=== PATIENT | female | born 1990 | race Caucasian/White ===

== ENCOUNTER 2023-11-05 11:40 | Emergency (ER) | payer BC, SELFPAY ==
[2023-11-05 11:42] VITALS: BP 143/75; BMI 35.5
--- NOTE | 2023-11-05 13:09 | ED.GENMED ---
History of Present Illness
<Spike Acosta PA-C - Last Filed: 11/05/23 15:37>
General
Chief Complaint: Breathing Problem
Time Seen by Provider: 11/05/23 12:57
Travel History
Have you had any contact with someone who has COVID-19?: No
Do you have any symptoms of coronavirus? Fever > 100 degrees, chills, cough, shortness of breath, sore throat, loss of taste or smell, muscle aches, or headache?: No
History of Present Illness
History of Present Illness:
Patient is a 32-year-old female with past medical history of POTS not currently on medication here today for evaluation of approximately 3 to 4 days of a cough associated with intermittent production of mucus, dyspnea that is worsened with exertion,
and mild chest congestion. No noted fevers. No sore throat. No chest pain. Patient denies history of asthma or COPD. No tobacco use. No recent surgeries or immobilizations. No active cancer. No personal history of DVT/PE. No unilateral
lower extremity pain or swelling. No hemoptysis. No estrogen use. No sick contacts. Patient does report she was checking her oxygen levels at home with a pulse oximeter and at times have noted it to be as low as 92-93%.
Review of Systems
<Spike Acosta PA-C - Last Filed: 11/05/23 15:37>
Review of Systems
All Other Systems: ROS reviewed and negative except as documented in HPI and ROS
Phy Exam
<Spike Acosta PA-C - Last Filed: 11/05/23 15:37>
Physical Exam
Physical Exam:
GENERAL: Alert , in no apparent distress
EYE: pupils equal and reactive
NECK: Supple, no significant adenopathy.
ENT: o/p clr, mmm.
CARDIAC: Regular rate and rhythm .
LUNGS: Clear breath sounds bilaterally, no acute respiratory distress, no wheezes/rales/rhonchi
ABDOMEN: Soft, without focal tenderness, no r/g, no cvat
NEUROLOGICAL: Alert and oriented, no focal neuro deficits
SKIN: Warm and dry, skin intact.
MUSCULOSKELETAL: No edema, well perfused.
PSYCH: Normal and appropriate interaction.
Course
<Spike Acosta PA-C - Last Filed: 11/05/23 15:37>
Orders/Labs/Results
Orders:
Orders
11/05/23 13:12
CR Chest - 2 Views Urgent
Comment:
Reason For Exam: sob
11/05/23 14:24
Basic Metabolic Panel Urgent
Complete Blood Count/With Diff Urgent
D-Dimer Urgent
11/05/23 14:53
Electrocardiogram (*1) Urgent
Reason for Study: Shortness of Breath
EKG- Treatment ONCE
11/05/23 14:24
11/05/23 14:24
Vital Signs
Initial and Last Documented VS:
Initial Vital Signs
Temp Pulse Resp BP Pulse Ox
98.2 F 98 16 143/75 96
11/05/23 11:42 11/05/23 11:42 11/05/23 11:42 11/05/23 11:42 11/05/23 11:42
Last Documented Vital Signs
Temp Pulse Resp BP Pulse Ox
97.5 F 76 20 131/78 99
11/05/23 15:33 11/05/23 15:33 11/05/23 15:33 11/05/23 15:33 11/05/23 15:33
<Aristeo Perera MD - Last Filed: 11/05/23 14:59>
Orders/Labs/Results
Orders:
Orders
11/05/23 13:12
CR Chest - 2 Views Urgent
Comment:
Reason For Exam: sob
11/05/23 14:24
Basic Metabolic Panel Urgent
Complete Blood Count/With Diff Urgent
D-Dimer Urgent
11/05/23 14:53
Electrocardiogram (*1) Urgent
Reason for Study: Shortness of Breath
EKG- Treatment ONCE
11/05/23 14:24
11/05/23 14:24
Vital Signs
Initial and Last Documented VS:
Initial Vital Signs
Temp Pulse Resp BP Pulse Ox
98.2 F 98 16 143/75 96
11/05/23 11:42 11/05/23 11:42 11/05/23 11:42 11/05/23 11:42 11/05/23 11:42
Last Documented Vital Signs
Temp Pulse Resp BP Pulse Ox
97.5 F 76 20 131/78 99
11/05/23 15:33 11/05/23 15:33 11/05/23 15:33 11/05/23 15:33 11/05/23 15:33
<Spike cAosta PA-C - Last Filed: 11/05/23 15:37>
MDM/Problems Addressed
Differential Diagnosis Includes:
Patient is a 32-year-old female with past medical history of POTS not currently on medication here today for evaluation of approximately 3 to 4 days of a cough associated with intermittent production of mucus, dyspnea that is worsened with exertion,
and mild chest congestion. Overall, patient appears very well. She has a benign and reassuring examination. I monitored the patient's oxygen levels on my evaluation and it ranged primarily between 95 to 98%. On 1 occasion, she dropped as low as
93%. This was short-lived and immediately improved. At this time, we will begin with a chest x-ray. Will continually monitor the patient's oxygen levels.
11/05/2023 15:15: Oxygen levels monitored and patient remained on average between 95 to 96%. Additional workup was added including screening labs which included D-dimer. Labs reveal no evidence of anemia. D-dimer negative. Chest x-ray negative.
EKG nonischemic. At this time, symptoms/findings are most consistent with a viral respiratory tract infection, possibly bronchitis. Case discussed with ED attending, Dr. Perera, who evaluated patient at bedside. Will initiate therapy with a course
of methylprednisolone and albuterol inhaler. Recommend supportive care and close follow-up. Patient voices understanding of the above plan. She appears well and stable for discharge. All questions answered
<Spike Acosta PA-C - Last Filed: 11/05/23 15:37>
*Critical Care Note
Total Time (30-74mins, 75-104mins- exclusive of procedures): Not Applicable
ED Attending Note
<Spike Acosta PA-C - Last Filed: 11/05/23 15:37>
-
Portions of this chart may have been created with voice recognition software.� Occasional wrong word or��sound alike� substitutions may have occurred due to the inherent limitations of voice recognition software.
<Aristeo Perera MD - Last Filed: 11/05/23 14:59>
ED Attending Note
Patient seen and examined by attending physician: Yes
ED Attending Note:
I have seen and evaluated the patient with a [id number] encounter. I have spoken to the advance practicer provider and involved in the medical history, the physical exam, medical decision making.
Evaluation and management service: agree unless noted differently below.
Results interpretation: agree unless noted differently below.
Focused HPI: 32-year-old female presents for evaluation of shortness of breath. Patient says that she has had a lingering cough for the past 2 to 3 weeks. She says that over the past 4 to 5 days she started to develop some shortness of breath.
She says that she has been checking her pulse ox and she saw a few low readings at home which prompted her to come to the emergency room. She has not had any chest pain. She denies any edema in her legs. She has not had any dizziness or
lightheadedness. She says she did have a miscarriage about 6 weeks ago and had some bleeding associated with that but otherwise no recent heavy periods and no GI bleeding.
Physical exam: Awake and alert not in distress. Vital signs here are all normal including a pulse ox of 96 to 98% on room air. No tachypnea. She has no cardiac rubs gallops or murmurs. Her lungs are completely clear to auscultation bilaterally.
Occasional cough. No edema in her legs. Good pulses in all extremities.
Medical Decision Makin-year-old female presents for evaluation of mild shortness of breath in the setting of recent lingering cough. Vital signs are normal here. Sent for chest x-ray reviewed by me shows no acute pathology. IV placed and
labs sent off including a CBC which showed no anemia, BMP which was unremarkable. She had a negative D-dimer. Suspect she may have mild bronchitis. Will trial short course of steroids and albuterol and have patient follow-up with her primary care
physician. She feels comfortable with this plan. Spoke about return precautions all questions answered.
Discharge Plan
Departure
Patient Disposition: Home (Routine Discharge)
Date of Disposition: 11/05/23
Time of Disposition: 15:16
Patient with high blood pressure during this ER visit?: Yes
Condition: Good
Covid-19: Not Applicable
Discharge Problem:
Dyspnea, Acute bronchitis
Instructions: Acute Bronchitis, Adult (DC), Shortness of Breath (Dyspnea) (DC)
Prescriptions:
New
methylprednisolone [Medrol (Mauri)] 4 mg tablets,dose pack
See Rx Instructions .ROUTE .COMPLEX Qty: 21 0RF
Rx Instructions:
for 6 days
albuterol sulfate [ProAir HFA] 90 mcg/actuation HFA aerosol inhaler
1 puff inhalation Q4HPRN PRN (Reason: shortness of breath) Qty: 8.5 0RF
No Action
bupropion HCl [Wellbutrin XL] 300 mg Tablet Extended Release 24 Hr
300 mg PO DAILY
fluoxetine [Prozac] 20 mg Capsule
60 mg PO DAILY
Zyrtec 10 mg Capsule
10 mg PO DAILY
Referrals:
Winter Mar, DO [Active] - As needed (Pulmonology)
Activity Restrictions/Additional Instructions:
Thank you for visiting the Emergency Department at [facility].
1. Please schedule a follow up appointment as directed. Call first thing tomorrow morning to make an appointment.
2. If indicated, please take your medications as instructed and indicated on discharge paperwork.
3. If any of your symptoms do not improve, or persist, or become more severe within 6-12 hours, please return to the emergency department for further care.
4. Please return to the emergency department if you develop a headache, neck pain/stiffness, fever greater than 100.4F, chest pain, shortness of breath, persistent nausea, vomiting, slurred speech, difficulty walking, numbness/tingling, weakness,
signs of infection or any other symptoms that are worrisome to you.
Please call [phone] if you have any questions.
Interventions
Interventions:
*Risk Screen - Suicide Last Done: 11/05/23 12:29
*General Assessment Last Done: 11/05/23 12:29
*Neglect/Abuse Screening Last Done: 11/05/23 12:29
ED- Fall Risk Assessment Last Done: 11/05/23 12:29
*ED COVID-19 Vaccine History Last Done: 11/05/23 11:42
*Nursing Disposition Last Done: 11/05/23 15:33
ED- Cardiac Assessment Last Done: 11/05/23 12:29
ED- Pulmonary Assessment Last Done: 11/05/23 12:29
Discharge Date and Time
Discharge Date/Time: 11/05/23 15:33
Print Language: NEPALI
--- NOTE | 2023-11-05 13:16 | EDRN ---
the pt is resting in stretcher, no s/s of distress, this RN checked the pts Sp02 again and Sp02 is currently 97-100%, no tachypnea, no s/s of respiratory distress, the pt denies needing anything at this time, this RN will continue to monitor the pt
closely
--- NOTE | 2023-11-05 13:34 | EDRN ---
this RN walked up to the pts bedside to check on the pt and this RN noticed that the pt was using ER dynamap to check her Sp02, the pt appeared anxious and this RN asked if the pt was alright and if the pt needed anything, the pt stated to this RN,
'No i'm not alright something is wrong with me, i need oxygen, my oxygen is 96%, it is never 96%', this RN looked over at the dynamap screen and saw that the pts Sp02 was 98%, this RN notified the pt of this, the then stated to this RN, 'Well i know
that something is wrong, i feel like i am in distress', this RN guided the pt through deep breathing to attempt to relax the pt, this RN also assured the pt that a CXR was ordered by Dr. Perera, this RN assured the pt that her vital signs were
stable, the pt is resting in stretcher in the lowest position, side rails up x1, HOB elevated, will continue to monitor the pt closely
[2023-11-05 13:36] VITALS: BP 136/71
[2023-11-05 14:35] LABS: % Basophils 1.1 % (0-2); % Eosinophils 3.8 % (0-6); % Immature Granulocytes 0.3 % (0-0.5); % Lymphocytes 29.9 % (20.5-51.1); % Monocytes 7.2 % (1.7-9.3); % Neutrophils 57.7 % (42.2-75.2); Absolute Basophils 0.1 10^3/uL (0-0.2); Absolute Eosinophils 0.3 10^3/uL (0-0.7); Absolute Lymphocytes 2.3 10^3/uL (1.2-3.4); Absolute Monocytes 0.6 10^3/uL (0.1-0.6); Absolute Neutrophils 4.4 10^3/uL (1.4-6.5); Hematocrit 42.4 % (37.0-47.0); Mean Corpuscular Volume 84.8 fL (81.0-99.0); Mean Platelet Volume 8.4 fL (7.4-10.4); Nucleated Red Blood Cells % 0 %; Platelet Count 360 10^3/uL (130-400); Red Cell Dist. Width 14.1 % (11.5-14.5); White Blood Cell Count 7.6 10^3/uL (4.8-10.8)
[2023-11-05 14:46] LABS: Blood Urea Nitrogen 12 mg/dl (7-17); Calcium 9.6 mg/dl (8.4-10.2); Carbon Dioxide 27 mmol/L (22-30); Chloride 104 mmol/L (98-107); Estimated Creatinine Clearance > 125 ml/min; Glucose 95 mg/dl (70-99); Potassium 4.5 mmol/L (3.5-5.1); Sodium 139 mmol/L (135-145); eGFR > 60.00
[2023-11-05 14:47] LABS: D-Dimer < 0.27 ug/mlFEU (0.00-0.50)
[2023-11-05 15:33] VITALS: BP 131/78
== END 2023-11-05 15:33 | disposition home or self-care (01) ==
LOC: EMR 11:40
PROVIDERS: Physician Assistant; EMERGENCY PHYSICIAN Emergency Medicine; FAMILY PHYSICIAN Family Medicine
DX: R06.00 Dyspnea, unspecified (principal); J20.9 Acute bronchitis, unspecified
CPT/HCPCS: 99285; 71046; 80048; 85025; 85379; 93005

== ENCOUNTER 2023-11-27 07:28 | Emergency (ER) | payer BC, SELFPAY ==
[2023-11-27 07:31] VITALS: BP 125/76
[2023-11-27 09:01] VITALS: BP 110/73
[2023-11-27 09:02] VITALS: BMI 34.6
--- NOTE | 2023-11-27 09:02 | ED.GENMED ---
History of Present Illness
General
Chief Complaint: Chest Problem
Time Seen by Provider: 11/27/23 08:40
Travel History
Have you had any contact with someone who has COVID-19?: No
Do you have any symptoms of coronavirus? Fever > 100 degrees, chills, cough, shortness of breath, sore throat, loss of taste or smell, muscle aches, or headache?: No
History of Present Illness
History of Present Illness:
33-year-old female with history of POTS, ADHD, and depression presents to the emergency department for evaluation of trouble breathing and chest pain that began this morning. She had somewhat similar symptoms late last month and was diagnosed with
bronchitis, treated with steroids and bronchodilators. She states her symptoms did improve fully before again worsening today. Pain is pleuritic, nonpositional. No leg swelling. Does not take any exogenous estrogen. No fevers or chills today.
Is continuing to cough but denies any purulent sputum
Review of Systems
Review of Systems
Allergies reviewed?: Yes
All Other Systems: ROS reviewed and negative except as documented in HPI and ROS
Phy Exam
Physical Exam
Physical Exam:
GEN: Well appearing, NAD, WDWN
HEENT: Oral mucosa moist, no scleral icterus
Cardiac: Regular rate and rhythm, no murmurs
Lung: No respiratory distress, no tachypnea. Auscultation bilaterally
MSK: No gross deformity or injuries
Skin: Good color, no pallor or jaundice, no rashes
Neuro: AO x3, moves all extremities freely
Psych: Calm, cooperative
Course
Orders/Labs/Results
Orders:
Orders
11/27/23 07:36
Electrocardiogram (*1) Urgent
Reason for Study: Chest Pain
EKG- Treatment ONCE
11/27/23 08:56
Cardiac Monitoring- Treatment ONCE
IV Insert/Care/Rem.- Treatment PRN
11/27/23 09:02
CR Chest - 2 Views Urgent
Comment:
Reason For Exam: chest pain/SOB
11/27/23 10:43
Test Result ONCE
11/27/23 10:50
Complete Blood Count/With Diff Urgent
Comprehensive Metabolic Panel Urgent
HCG, Serum Qualitative Screen Urgent
Troponin I Urgent
11/27/23 11:15
D-Dimer Urgent
Abnormal Lab Results
11/27/23
10:50
MCHC 32.6 L g/dL
(33.0-37.0)
RDW 15.0 H %
(11.5-14.5)
Lymphocytes % 20.1 L %
(20.5-51.1)
11/27/23 10:50
11/27/23 10:50
Vital Signs
Initial and Last Documented VS:
Initial Vital Signs
Temp Pulse Resp BP Pulse Ox
98.3 F 79 18 125/76 91
11/27/23 07:31 11/27/23 07:31 11/27/23 07:31 11/27/23 07:31 11/27/23 07:31
Last Documented Vital Signs
Temp Pulse Resp BP Pulse Ox
98.3 F 72 28 94/54 93
11/27/23 07:31 11/27/23 12:15 11/27/23 12:15 11/27/23 12:00 11/27/23 12:15
MDM/Problems Addressed
MDM/Problems Addressed:
33-year-old female presents with dyspnea and chest discomfort. She did have a recent viral syndrome preceding the symptoms. Chest x-ray was obtained which shows no evidence for obvious infiltrate. Blood work was then obtained showing a normal
troponin and negative D-dimer. Patient's vital signs are markable however she does have occasional periods of hypoxia to the low 90s. She appears to be unlabored and has no adventitious lung sounds. Could certainly be developing pneumonia at this
point. Will cover with oral antibiotics, recommend primary care follow-up if symptoms persist
Comment
Comment:
EKG independently to me shows normal sinus rhythm rate [address] changes concerning for ischemia
*Critical Care Note
Total Time (30-74mins, 75-104mins- exclusive of procedures): Not Applicable
ED Attending Note
-
Portions of this chart may have been created with voice recognition software.� Occasional wrong word or��sound alike� substitutions may have occurred due to the inherent limitations of voice recognition software.
Discharge Plan
Departure
Patient Disposition: Home (Routine Discharge)
Date of Disposition: 11/27/23
Time of Disposition: 12:12
Patient with high blood pressure during this ER visit?: No
Discharge Problem:
Atypical chest pain
Instructions: Pneumonia, Adult (DC)
Prescriptions:
New
doxycycline monohydrate 100 mg capsule
100 mg PO BID Qty: 14 0RF
No Action
bupropion HCl [Wellbutrin XL] 300 mg Tablet Extended Release 24 Hr
300 mg PO DAILY
fluoxetine [Prozac] 20 mg Capsule
60 mg PO DAILY
Zyrtec 10 mg Capsule
10 mg PO DAILY
albuterol sulfate [ProAir HFA] 90 mcg/actuation HFA aerosol inhaler
1 puff inhalation R Q4HPRN PRN (Reason: shortness of breath)
Referrals:
Chloe Ochoa DO [Family Provider] -
Interventions
Interventions:
*Risk Screen - Suicide Last Done: 11/27/23 09:02
*General Assessment Last Done: 11/27/23 09:02
*Neglect/Abuse Screening Last Done: 11/27/23 09:02
ED- Fall Risk Assessment Last Done: 11/27/23 09:03
*ED COVID-19 Vaccine History Last Done: 11/27/23 09:02
*Nursing Disposition Last Done: 11/27/23 12:30
ED- Cardiac Assessment Last Done: 11/27/23 09:01
ED- Pulmonary Assessment Last Done: 11/27/23 09:01
Discharge Date and Time
Discharge Date/Time: 11/27/23 12:30
Print Language: GREENLANDIC
--- NOTE | 2023-11-27 09:09 | EDRN ---
Pt's POX is 90-94% on RA.
[2023-11-27 10:41] VITALS: BP 110/61
[2023-11-27 11:00] VITALS: BP 101/60
[2023-11-27 11:03] LABS: % Basophils 0.9 % (0-2); % Eosinophils 3.3 % (0-6); % Immature Granulocytes 0.1 % (0-0.5); % Lymphocytes 20.1 % (20.5-51.1); % Monocytes 7.7 % (1.7-9.3); % Neutrophils 67.9 % (42.2-75.2); Absolute Basophils 0.1 10^3/uL (0-0.2); Absolute Eosinophils 0.3 10^3/uL (0-0.7); Absolute Lymphocytes 1.5 10^3/uL (1.2-3.4); Absolute Monocytes 0.6 10^3/uL (0.1-0.6); Absolute Neutrophils 5.1 10^3/uL (1.4-6.5); Hematocrit 41.4 % (37.0-47.0); Hemoglobin 13.5 g/dL (12.0-16.0); Mean Corp Hgb Conc. 32.6 g/dL (33.0-37.0); Mean Corpuscular Hgb 27.6 pg (27.0-31.0); Mean Corpuscular Volume 84.5 fL (81.0-99.0); Mean Platelet Volume 8.6 fL (7.4-10.4); Nucleated Red Blood Cells % 0 %; Platelet Count 346 10^3/uL (130-400); White Blood Cell Count 7.6 10^3/uL (4.8-10.8)
[2023-11-27 11:10] LABS: HCG, Serum Qualitative Screen Negative
[2023-11-27 11:16] LABS: ALT (SGPT) 20 U/L (0-35); AST (SGOT) 22 U/L (14-36); Albumin 4.1 g/dl (3.5-5.0); Alkaline Phosphatase 76 U/L (38-126); Blood Urea Nitrogen 9 mg/dl (7-17); Calcium 9.2 mg/dl (8.4-10.2); Carbon Dioxide 25 mmol/L (22-30); Chloride 106 mmol/L (98-107); Estimated Creatinine Clearance > 125 ml/min; Glucose 92 mg/dl (70-99); Sodium 137 mmol/L (135-145); Total Bilirubin 0.5 mg/dl (0.2-1.3); Total Protein 6.6 g/dl (6.3-8.2); eGFR > 60.00
[2023-11-27 11:22] LABS: Troponin I < 0.012 ng/ml
[2023-11-27 12:00] VITALS: BP 94/54
[2023-11-27 12:01] LABS: D-Dimer 0.31 ug/mlFEU (0.00-0.50)
== END 2023-11-27 12:30 | disposition home or self-care (01) ==
LOC: EMR 07:28
PROVIDERS: Physician Assistant; EMERGENCY PHYSICIAN Emergency Medicine; FAMILY PHYSICIAN Family Medicine
DX: R07.89 Other chest pain (principal); R06.02 Shortness of breath; G90.A Postural orthostatic tachycardia syndrome [POTS]; F90.9 Attention-deficit hyperactivity disorder, unspecified type; F32.A Depression, unspecified
CPT/HCPCS: 99283; 71046; 80053; 84484; 84703; 85025; 85379; 93005

== ENCOUNTER 2025-06-11 17:49 | Emergency (ER) | payer BC, SELFPAY ==
[2025-06-11 18:01] VITALS: BP 151/88
[2025-06-11 19:50] LABS: Urine Character Slightly Cloudy (Clear)
[2025-06-11 19:56] LABS: Urine Red Blood Cell >100 /HPF (0-2); Urine Squamous Cell 0-2 /LPF (Few)
--- NOTE | 2025-06-11 20:27 | ED.GENMED ---
History of Present Illness
General
Chief Complaint: Urinary Symptoms
Source: patient
Exam Limitations: none
Time Seen by Provider: 06/11/25 19:26
Nursing documentation reviewed up to this point in time: agreed with
History of Present Illness
History of Present Illness:
34-year-old female had a vaginal delivery in the ambulance on June 02 at 36 weeks . Afterwards she had retained urine and was straight cathed for 1800 mL, she was straight cathed a second time for a large amount of urine on 1017 so a
Escudero catheter was placed. She was discharged home and on 06/07 had an OB appointment where the Escudero catheter was removed at 11:45 AM and by 2:00 PM she still was unable to void and had pain in her bladder so she was sent to the ER and Escudero was
put back in.
Yesterday she noted there was blood in the drainage bag and today she had intense pressure and pain in her abdomen and also at the insertion site of the catheter in her urethra. She said her urine looked 'like punch.' And also had some
lower abdominal cramping pains that started last night.
She denies fever or chills, n/v.. At this time she is not having any significant abdominal pain.
She has a follow-up appointment with urology in 3 days.
Past History
Past History
ED Past Medical History: Asthma, Psychiatric (ADHD, depression), Other (Graves' disease she developed during her ) and Other (BULLOCK)
Social History
Tobacco: Non-smoker
Alcohol: None
Personal:
Review of Systems
Review of Systems
Allergies reviewed?: Yes
All Other Systems: ROS reviewed and negative except as documented in HPI and ROS
Phy Exam
Physical Exam
Physical Exam:
GENERAL: No acute distress. A&Ox3.
CONSTITUTIONAL: Afebrile.
RESPIRATORY: Regular respirations, nonlabored, lungs clear.
CARDIOVASCULAR: Regular rate and rhythm, no murmurs, no rubs.
GI: Soft, nontender, normal BS
: Escudero catheter intact draining clear yany urine
MUSCULOSKELETAL: Moves with ease. Well perfused.
SKIN: Warm, dry, pink
PSYCH: Normal mood and affect. Well kept, interactive and appropriate
NEUROLOGIC: Awake, alert and oriented. No focal neurological deficits
Course
Orders/Labs/Results
Orders:
Orders
06/11/25 19:36
Urinalysis Reflex To Culture Urgent
Date Specimen was Collected: 06/11/25
Time Specimen was Collected: 19:31
Urine Microscopic Reflex Cult Urgent
Urine Culture Urgent
SARAHI Source: U
Specimen Description:
Obtained by: Random
Date Specimen was Collected: 06/11/25
Time Specimen was Collected: :31
06/11/25 20:25
CT Abd/pel Without Iv Or Oral Urgent
Comment:
Reason For Exam: hematuria, abd pain, has Escudero in
06/11/25 22:03
Cephalexin Monohydrate [Keflex] 500 mg PO NOW STA
Abnormal Lab Results
06/11/25
19:36
Ur Occult Blood Reflex 4+ A
(Negative)
Leukocyte Esterase Rfl 2+ A
(Negative)
Urine RBC >100 A /HPF
(0-2)
Urine WBC (Reflex) 11-15 A /HPF
(0-5)
Urine Bacteria (Reflex) Many A
(Negative)
Urine Albumin (Reflex) 3+ A
(Neg - Trace)
Vital Signs
Initial and Last Documented VS:
Initial Vital Signs
Temp Pulse Resp BP Pulse Ox
99.2 F 92 16 151/88 98
06/11/25 18:01 06/11/25 18:01 06/11/25 18:01 06/11/25 18:01 06/11/25 18:01
Last Documented Vital Signs
Temp Pulse Resp BP Pulse Ox
99.2 F 92 16 151/88 98
06/11/25 18:01 06/11/25 18:01 06/11/25 18:06/11/25 18:01 06/11/25 20:31
MDM/Problems Addressed
Differential Diagnosis Includes:
UTI, kidney stone, cystitis
MDM/Problems Addressed:
34-year-old female had a vaginal delivery in the ambulance on June 02 at 36 weeks . Afterwards she had retained urine and was straight cathed for 1800 mL, she was straight cathed a second time for a large amount of urine on 1017 so a
Escudero catheter was placed. She was discharged home and on 06/07 had an OB appointment where the Escudero catheter was removed at 11:45 AM and by 2:00 PM she still was unable to void and had pain in her bladder so she was sent to the ER and Escudero was
put back in.
Yesterday she noted there was blood in the drainage bag and today she had intense pressure and pain in her abdomen and also at the insertion site of the catheter in her urethra. She said her urine looked 'like punch.' And also had some
lower abdominal cramping pains that started last night.
She denies fever or chills, n/v.. At this time she is not having any significant abdominal pain.
She has a follow-up appointment with urology in 3 days.
Afebrile, NAD
9:00 PM:
UA with 2+ leukocytes, negative nitrates, greater than 100 RBCs, WBCs 11-15, many bacteria
Will proceed to CAT scan to rule out kidney stone
10:[address] scan radiology report read: IMPRESSION:
Enlarged uterus. Tennyson 3 x 2 cm focus of subtle increased attenuation within or adjacent to the endometrial canal and the lower uterine segment, probable blood clot.
Escudero catheter within a collapsed urinary bladder, containing iatrogenic tiny focus of gas.
No renal or ureteral calculus. No bladder calculus. No hydronephrosis or obstructive uropathy. No perinephric soft tissue stranding.
Will treat since symptomatic, urine culture pending.
Patient is breast-feeding, prescription for Keflex 500 mg BID x 7 days sent to her pharmacy
*Pulse Oximetry
SaO2: 98
Oxygen Mode of Delivery: Room air
Patient hypoxic: not evaluated
*Critical Care Note
Total Time (30-74mins, 75-104mins- exclusive of procedures): Not Applicable
ED Attending Note
-
Portions of this chart may have been created with voice recognition software.� Occasional wrong word or��sound alike� substitutions may have occurred due to the inherent limitations of voice recognition software.
Discharge Plan
Departure
Patient Disposition: Home (Routine Discharge)
Date of Disposition: 06/11/25
Time of Disposition: 22:04
Patient with high blood pressure during this ER visit?: No
Condition: Good
Discharge Problem:
UTI (urinary tract infection)
Instructions: Urinary Tract Infection, Adult (DC)
Prescriptions:
New
cephalexin 500 mg capsule
500 mg PO BID Qty: 14 0RF
No Action
bupropion HCl [Wellbutrin XL] 300 mg Tablet Extended Release 24 Hr
300 mg PO DAILY
fluoxetine [Prozac] 20 mg Capsule
60 mg PO DAILY
Zyrtec 10 mg Capsule
10 mg PO DAILY
albuterol sulfate [ProAir HFA] 90 mcg/actuation HFA aerosol inhaler
1 puff inhalation R Q4HPRN PRN (Reason: shortness of breath)
doxycycline monohydrate 100 mg capsule
100 mg PO BID Qty: 14 0RF
Referrals:
Your Urologist [Other] - Keep scheduled appt
Aashish Delarosa DO [Family Provider, Family Practice]
Activity Restrictions/Additional Instructions:
As we discussed, I sent a prescription to your pharmacy for Keflex for the urinary tract infection.
Keep your appointment with your urologist.
Interventions
Interventions:
*Risk Screen - Suicide Last Done: 06/11/25 19:47
*General Assessment Last Done: 06/11/25 19:47
*Neglect/Abuse Screening Last Done: 06/11/25 19:47
*ED- Fall Risk Assessment Last Done: 06/11/25 19:47
*ED COVID-19 Vaccine History Last Done: 06/11/25 19:47
*ED Influenza Vaccine History Last Done: 06/11/25 19:47
*Nursing Disposition Last Done: 06/11/25 22:16
ED-Female Genitourinary Assessment Last Done: 06/11/25 19:48
Discharge Date and Time
Discharge Date/Time: 06/11/25 22:16
Print Language: [place]
[2025-06-11] MEDS: KEFLEX 500 MG PO (22:08)
== END 2025-06-11 22:16 | disposition home or self-care (01) ==
LOC: EMR 17:49
PROVIDERS: Registered Nurse; EMERGENCY PHYSICIAN Student in an Organized Health Care Education/Training Program; FAMILY PHYSICIAN Student in an Organized Health Care Education/Training Program
DX: O86.20 Urinary tract infection following delivery, unspecified (principal); N39.0 Urinary tract infection, site not specified; B95.2 Enterococcus as the cause of diseases classified elsewhere; O99.355 Diseases of the nervous system complicating the puerperium; G90.A Postural orthostatic tachycardia syndrome [POTS]; O99.53 Diseases of the respiratory system complicating the puerperium; J45.909 Unspecified asthma, uncomplicated; O99.345 Other mental disorders complicating the puerperium; F90.9 Attention-deficit hyperactivity disorder, unspecified type; F32.A Depression, unspecified; O99.285 Endocrine, nutritional and metabolic diseases complicating the puerperium; E05.00 Thyrotoxicosis with diffuse goiter without thyrotoxic crisis or storm
CPT/HCPCS: 99284; 74176; 81003; 81015; 87077; 87086; 87186